=== PATIENT | female | born 1960 | race Caucasian/White ===

== ENCOUNTER 2018-08-18 11:32 | Outpatient (CLI) | payer BC ==
--- NOTE | 2018-08-18 13:34 | RAD ---
FRONTAL AND LATERAL IMAGING OF THE CHEST: Date: 08-18-18 Comparison: None. History: Chest pain and congestion. FINDINGS: There is no pneumothorax, pleural fluid, focal consolidation or alveolar edema. Heart and mediastinal contours appear grossly unremarkable. There is prominent degenerative changes at the first costochondral junction bilaterally, right greate r than left. There is multilevel degenerative change within the midthoracic spine. At the level of the first costochondral junction, increased density is seen which is likely all osseo us in nature. It is difficult to exclude an underlying pulmonary mass. IMPRESSION: Increased density in the region of the first costochondral junction bilaterally, right greater than l eft, suggesting degenerative change. It is difficult to exclude an underlying pulmonary nodule in the right lung apex. Thus, a follow up radiograph in 4-6 weeks is advised with apical lordotic view. POS: OFF
== END 2018-08-18 11:33 | disposition home or self-care (01) ==
LOC: BICRAD 11:32
PROVIDERS: ATTEND Internal Medicine Rheumatology
DX: R07.9 Chest pain, unspecified (principal); R91.8 Other nonspecific abnormal finding of lung field
CPT/HCPCS: 71046

== ENCOUNTER 2018-09-27 09:38 | Outpatient (CLI) | payer BC ==
--- NOTE | 2018-09-27 12:00 | CT ---
CT PARANASAL SINUSES NONCONTRAST: Date: 09-27-18 History: 57-year-old female with J32.9 - chronic sinusitis, unspecified. Comparison: None available. FINDINGS: There is an old left orbital floor fracture involving the medial aspect of the left infraorbital renae l. The transverse dimension of the fracture defect is approximately 7 mm. There has been healing of t he inferiorly displaced floor of the fracture fragments, with union of bone. There is herniation of e xtraconal fat into this fracture defect, but no herniation of the inferior rectus muscle. No intraorb ital edema, gas, or hematoma. There is mild-moderate circumferential mucosal thickening of the left maxillary sinus. There is also a fluid level at the dependent portion of the left maxillary sinus. Overall there is approximately 20 % opacification of the left maxillary antrum lumen. The bilateral uncinate processes have been surgically resected, and there are very widely patient and clear communications between the maxillary sinuses and the bilateral middle meati. The ethmoid septa are intact. There is a tiny polypoid density a few millimeters in size, which may represent mucosal thickening or a tiny polyp, at the left anterior inferior aspect of the nasal septum, abutting the in ferior turbinate. Otherwise, the nasal cavity is clear. No significant nasal septal deviation. Right maxillary sinus, all of the right ethmoid air cells, right frontal sinus, and left sphenoid air cell, are clear. Left sphenoethmoidal recess is patent and clear. Right sphenoid recess may be narrowed. M inimal mucosal thickening at right sphenoid air cell. There is mucosal thickening at the left fronta l recess also involving left anterior ethmoid air cells, without occlusion of the frontal recess. The rest of the left ethmoid air cells and the rest of the left frontal sinus are clear. IMPRESSION: 1. Status post FESS (functional endoscopic sinus surgery) consisting of bilateral uncinectomies, with widely patent and clear communication between the bilateral maxillary sinuses and the middle meati. 2. Old left orbital floor fracture. 3. Combination of mild mucosal thickening and fluid in the left maxillary sinus. 4. Mucosal thickening at left frontal recess and adjacent left anterior ethmoid air cells, without oc clusion. 5. The rest of the paranasal sinuses are essentially clear. POS: TPC
--- NOTE | 2018-09-27 12:13 | CT ---
CT THORAX WITH CONTRAST: DATE: 09-27-18 HISTORY: 57-year-old female with abnormal chest radiograph, chest pain, chest congestion. TECHNIQUE: 70 ml of Isovue 370 FINDINGS: There are severe degenerative changes at the bilateral first costosternal junctions, with greater scl erosis and bony hypertrophy on the right than the left. This accounts for the appearance of biapical pulmonary nodules on the recent chest radiograph of 08-18-18. There are no actual pulmonary nodules. There is no ground glass opacity, bronchiectasis, consolidation, pulmonary edema, or bullae. There ar e mild plate-like densities at the right middle lobe and lingula, consistent with subsegmental atelec tasis. Otherwise, the lungs are clear. The thoracic aorta is normal in caliber with no aneurysm, diss ection, or calcified atherosclerotic plaque. No cardiomegaly, mediastinal lymphadenopathy or hilar ly mphadenopathy. No pleural effusion or pneumothorax. Trachea and major bronchi are patent and clear. IMPRESSION: 1. No active disease. 2. No pulmonary nodules. 3. Osteoarthrosis of the bilateral first costosternal joints, accounting for the appearance of nodule s on previous chest radiograph. ROMEL Garcia POS: TPC
[2018-09-27] MEDS ORDERED: ISOVUE-370 76%-LOCM 1 ML ONE (13:18)
== END 2018-09-27 09:39 | disposition home or self-care (01) ==
LOC: BICCT 09:38
PROVIDERS: ATTEND Family Medicine
DX: R91.8 Other nonspecific abnormal finding of lung field (principal); M19.90 Unspecified osteoarthritis, unspecified site; J34.89 Other specified disorders of nose and nasal sinuses; Z98.890 Other specified postprocedural states
CPT/HCPCS: 71260; Q9966

== ENCOUNTER 2018-09-30 13:58 | Outpatient (CLI) | payer BC ==
--- NOTE | 2018-09-30 15:26 | BD ---
DEXA BONE MINERAL DENSITOMETRY STUDY: DATE: 09/30/2018. HISTORY: Postmenopausal. FINDINGS: Lumbar Spine: BMD (g/cm2) L1 1.046 T-Score: 0.5 Z-Score: 1.6 L2 0.998 T-Score: -0.3 Z-Score: 1.0 L3 1.101 T-Score: 0.2 Z-Score: 1.4 L4 1.127 T-Score: 0.6 Z-Score: 1.9 L1-L4 1.071 T-Score: 0.2 Z-Score: 1.5 Femoral Neck: 1.001 T-Score: 1.4 Z-Score: 2.6 Total Femur: 1.256 T-Score: 2.6 Z-Score: 3.4 Impression: Normal bone mineralization of the lumbar spine and left femoral neck. POS: RICH
== END 2018-09-30 13:59 | disposition home or self-care (01) ==
LOC: BICMAMMO 13:58
PROVIDERS: ATTEND Family Medicine
DX: Z13.820 Encounter for screening for osteoporosis (principal)
CPT/HCPCS: 77080

== ENCOUNTER 2019-04-13 12:36 | Outpatient (CLI) | payer BC ==
[2019-04-13 14:27] LABS: #Eosinphils 0.3 thou/uL (0.0-0.7); #Lymphocytes 3.7 thou/uL (1.20-3.40); #Monocytes 0.3 thou/uL (0.11-0.59); #Neutrophils 3.4 thou/uL (1.40-6.50); %Basophils 0.4 % (0.0-1.0); %Eosinophils 3.5 % (0.0-10.0); %Lymphocytes 47.7 % (21.0-51.0); %Monocytes 4.1 % (0.0-10.0); %Neutrophils 44.4 % (42.0-75.0); Hemoglobin 13.9 g/dL (12.0-16.0); Mean Corpuscular HGB CONC 32.6 g/dL (32.0-36.0); Mean Corpuscular Volume 91.8 fL (78.0-98.0); Platelet Count 220 thou/uL (130-400); RBC Distribution Width 12.2 % (11.5-14.5); Red Blood Cell (RBC) Count 4.64 mill/uL (4.20-5.40); White Blood Cell (WBC) Count 7.7 thou/uL (4.8-10.8)
[2019-04-13 14:33] LABS: INR-International Normal Ratio 0.9; Prothrombin Time 12.6 SEC (12.0-14.7)
[2019-04-13 14:35] LABS: Bilirubin Negative (Negative); Blood, Urine Negative (Negative); Clarity Clear (Clear); Glucose, Urine (Dipstick) 500 mg/dL (Negative); Leukocyte Negative Leu/uL (Negative); Nitrite Negative (Negative); Protein, Urine (Dipstick) Negative (Neg-Trace); RBC/HPF 0-3 HPF (0-3); Squamous Epithelial 0-3 HPF (0-3); Urobilinogen Normal mg/dL (Less than 2); WBC/HPF 0-3 HPF (0-3)
[2019-04-13 14:39] LABS: Bacteria/HPF 1+ HPF (None Seen)
[2019-04-13 14:50] LABS: Anion Gap 13 mmol/L (10-20); BUN (Urea Nitrogen) 12 mg/dL (9.8-20.1); Calc. Creatinine Clearance 0 mL/min (70-130); Calcium 10.2 mg/dL (7.8-10.44); Carbon Dioxide 26 mmol/L (22-29); Chloride 103 mmol/L (98-107); Estimated GFR-MDRD 74; Glucose 94 mg/dL (70-105); Potassium 4.3 mmol/L (3.5-5.1); Sodium 138 mmol/L (136-145)
== END 2019-04-13 12:37 | disposition home or self-care (01) ==
LOC: LABBT 12:36
PROVIDERS: ATTEND Orthopaedic Surgery
DX: Z01.812 Encounter for preprocedural laboratory examination (principal); M17.11 Unilateral primary osteoarthritis, right knee
CPT/HCPCS: 80048; 81001; 85025; 85610; 87081; 87086

== ENCOUNTER 2019-04-13 13:30 | Inpatient (IN) | payer BC ==
--- NOTE | 2019-04-13 09:16 | HP ---
HISTORY OF PRESENT ILLNESS: The patient is a 58-year-old female with long history of problems with both knees, the left greater than right. At age 17, she underwent surgery for recurrent patellar dislocations. Surgery was initially successful, but over the years, she has had progressive problems with walking, weightbearing, especially going up and down stairs. She has had persistent symptoms despite rest, restriction of activities, oral medications, and previous injections. The pain is now interfering with day-to-day activities including walking, getting dressed, and sleeping. PAST MEDICAL HISTORY: The patient is otherwise in good health. She has a history of fibromyalgia, diabetes, and thyroid replacement. CURRENT MEDICATIONS: Include; 1. Effexor. 2. Buspirone. 3. Diazepam. 4. Metformin. 5. Thyroid. 6. Fluticasone nasal spray. 7. Zyrtec. 8. Naproxen. 9. Estrogens. 10. Omeprazole. 11. Multivitamins. 12. MiraLAX. 13. Pristiq. 14. Glucosamine. ALLERGIES: SHE IS ALLERGIC TO ERYTHROMYCIN. FAMILY HISTORY: Otherwise, unremarkable. SOCIAL HISTORY: Otherwise, unremarkable. REVIEW OF SYSTEMS: Otherwise, unremarkable. PHYSICAL EXAMINATION: GENERAL: Reveals a healthy female. HEENT: Unremarkable. NECK: Supple. CHEST: Clear. HEART: Regular rate and rhythm. ABDOMEN: Soft, nontender. PELVIS, RECTAL, AND BREAST: Deferred. EXTREMITIES: Pertinent findings are related to the left knee. There is slight puffiness. No definite effusion. There is normal alignment. There is medial and lateral joint line tenderness. There is crepitus with range of motion. There is a healed medial incision. There is no instability. Range of motion is 0 to 135 degrees. Pulses are 1+. Neurovascular exam is intact. There is no pain with range of motion of the left hip. IMAGING STUDIES: X-rays of both knees reveal tricompartmental degenerative arthritis and [id number] in the patellofemoral joints bilaterally, left side greater than right. IMPRESSION: 1. Degenerative arthritis, both knees, left symptomatic more than right. 2. History of diabetes. 3. History of thyroid replacement. 4. History of fibromyalgia. PLAN: Left total knee replacement. The nature of the surgery, length of recovery, and potential complications such as infection, loss of motion, incomplete relief, delayed wound healing, neurovascular injury, thromboembolic phenomena, possible transfusion, and need for revision have been discussed in detail. Job ID: [id number]
[2019-04-13 12:46] VITALS: BMI 25.9
[2019-04-17] MEDS ORDERED: ceFAZolin Sodium (SDC) 2 GM/100 ML BAG ONE (06:26)
[2019-04-17] MEDS ORDERED: Tranexamic Acid 1,000 MG/10 ML VIAL ONE ×2 (06:26→08:58)
[2019-04-17] MEDS ORDERED: Sodium Chloride 0.9% 100 ML ONE (06:26)
[2019-04-17] MEDS ORDERED: Midazolam HCl 2 mg/2 ml Vial ONE (06:33)
[2019-04-17] MEDS ORDERED: Fentanyl 100 MCG/2 ML VIAL ONE ×3 (06:33→09:29)
[2019-04-17] MEDS ORDERED: Promethazine HCl 25 MG/ML VIAL ONE (07:00)
[2019-04-17] MEDS ORDERED: Scopolamine 1.5 mg/72 hour Patch ONE (07:03)
[2019-04-17] MEDS ORDERED: Fentanyl 100 MCG/2 ML VIAL IV PRN (07:37)
[2019-04-17] MEDS ORDERED: Ropivacaine HCl/PF 250 ML in Premix Bag 1 BAG NERVE BLCK SCH (07:37)
[2019-04-17] MEDS ORDERED: Ondansetron PF 4 MG/2 ML Vial IVP PRN ×2 (07:37→11:00)
[2019-04-17] MEDS ORDERED: Zolpidem Tartrate 5 MG TAB PO PRN ×2 (07:37→11:00)
[2019-04-17] MEDS ORDERED: Promethazine HCl 25 MG/ML VIAL IM PRN ×2 (07:37→08:54)
[2019-04-17] MEDS ORDERED: traMADol HCl 50 MG TAB PO PRN ×3 (07:37→11:00)
[2019-04-17] MEDS ORDERED: HYDROcodone/Acetaminophen 10/325 mg Tablet PO PRN ×3 (07:37→11:00)
[2019-04-17] MEDS ORDERED: Bupivacaine/Epinephrine 0.25% 30 ML VIAL ONE (07:40)
[2019-04-17] MEDS ORDERED: Promethazine HCl 25 MG/ML VIAL SLOW IVP PRN ×2 (08:54→11:00)
[2019-04-17] MEDS ORDERED: HYDROmorphone 2 MG/ML VIAL SLOW IVP PRN (08:54)
[2019-04-17] MEDS ORDERED: Ondansetron HCl/PF 4 MG/2 ML Vial IVP PRN (08:54)
[2019-04-17] MEDS ORDERED: PACU-Morphine 4MG/ML VIAL SLOW IVP PRN (08:54)
[2019-04-17] MEDS ORDERED: Tranexamic Acid 1,000 MG in Sodium Chloride 0.9% 100 ML IVPB SCH ×2 (09:00→11:00)
--- NOTE | 2019-04-17 10:32 | RAD ---
LEFT KNEE 2 VIEWS: HISTORY: Total knee postop. FINDINGS/IMPRESSION: There are recent postop changes of total knee arthroplasty in good position and alignment. Soft tiss ue air is present. POS: TPC
[2019-04-17] MEDS ORDERED: Non-Formulary Item 1 EACH (Dulaglutide [Trulicity] 1.5 MG) SC SCH (11:00)
[2019-04-17] MEDS ORDERED: DULoxetine 30 MG CAP PO SCH ×4 (11:00→21:00)
[2019-04-17] MEDS ORDERED: Multivitamin W/ Minerals 1 TAB PO SCH ×2 (11:00→11:30)
[2019-04-17] MEDS ORDERED: Vancomycin HCl 1 GM in Premix Bag 1 BAG IVPB SCH ×2 (11:00→19:00)
[2019-04-17] MEDS ORDERED: Fentanyl 100 MCG/2 ML VIAL SLOW IVP PRN ×2 (11:00)
[2019-04-17] MEDS ORDERED: Acetaminophen 325 MG TAB PO PRN (11:00)
[2019-04-17] MEDS ORDERED: Citrucel 500 MG TAB PO PRN (11:00)
[2019-04-17] MEDS ORDERED: Aspirin 81 mg Enteric Coated Tablet PO SCH ×2 (11:00→11:30)
[2019-04-17] MEDS ORDERED: Non-Formulary Item 1 EACH (Dapagliflozin Propanediol [Farxiga] 1 TAB) PO SCH (11:00)
[2019-04-17] MEDS ORDERED: diphenhydrAMINE 25 MG CAP PO PRN (11:00)
--- NOTE | 2019-04-17 11:14 | OP ---
DATE OF PROCEDURE: 04/17/2019 GLASS INSPECTOR: Tanya Herron PA-C ANESTHESIA: General plus adductor canal and sciatic nerve blocks. PREOPERATIVE DIAGNOSIS: Post-traumatic degenerative arthritis, left knee. POSTOPERATIVE DIAGNOSIS: Post-traumatic degenerative arthritis, left knee. PROCEDURE PERFORMED: Left total knee replacement with computer-assisted navigation with cemented [place] [employer] components (#3 femoral component, #3 primary tibial baseplate with a 9 mm CS plastic insert, and A29 all-plastic patellar component). DESCRIPTION OF PROCEDURE: After satisfactory anesthesia was induced in supine position, sequential compression device was placed on the nonoperative leg throughout the procedure. The left leg was then prepped and draped in routine sterile fashion. The leg was elevated and exsanguinated with an Esmarch bandage and the tourniquet inflated to 250 mmHg. The previous medial parapatellar incision was reopened in line with the previous incision and carried slightly proximally. This was carried down through subcutaneous tissues. Bleeding points were controlled with Bovie cautery. A full-thickness medial flap was developed and retracted laterally. The medial parapatellar arthrotomy was performed. The patella was dislocated laterally and portions of the fat pad were excised for exposure. There was marked degenerative arthritis of the knee especially in the patellofemoral joint with large areas of exposed bone. Meniscal remnants and osteophytes were removed. Using the [employer] pinless navigation system and the appropriate guides, the distal femoral and proximal tibial articular surfaces were excised with an oscillating saw to accept the trial components. It was felt that #3 femoral component and #3 tibial baseplate with 9 mm CS plastic insert gave appropriate size, fit, and stability. The patellar articular surface was excised to accept an all-plastic A29 patellar component. There was good range of motion and good patellar tracking. The trial components were removed. The knee was copiously irrigated with pulsatile lavage and the bony surfaces were thoroughly cleaned and dried. The permanent components were then cemented in a single stage using one package of cement premixed with 1 g of tobramycin powder. Excess cement was removed. There was again good fit and stability of the components. The knee was again copiously irrigated with pulsatile lavage. The medial retinaculum and quadriceps mechanism was closed with interrupted #2 Vicryl and running #2 Quill. The skin was infiltrated with 30 mL of 0.25% Marcaine with epinephrine. Subcutaneous tissues were closed with running 0 Quill suture and the skin closed with running subcuticular 3-0 Monoderm and SurgiSeal skin adhesive. A sterile bulky compressive dressing was applied. The tourniquet deflated after 63 minutes. The foot promptly pinked up. A sequential compression device was applied to the left leg. She was awakened and taken to recovery room in stable condition. There were no apparent intraoperative complications. The estimated blood loss was less than 100 mL. Job ID: [id number]
[2019-04-17] MEDS: Sodium Chloride 0.9% 1,000 ML IV SCH ×2 (11:40→21:07)
[2019-04-17] MEDS ORDERED: Dextrose 5% in Water 1,000 ML IV PRN (11:48)
[2019-04-17] MEDS ORDERED: Dextrose 50% Abboject 50 ML SYRINGE SLOW IVP PRN (11:48)
[2019-04-17] MEDS ORDERED: HumaLOG 300 UNITS/3 ML VIAL SC PRN ×2 (11:48)
[2019-04-17] MEDS ORDERED: Ketorolac Tromethamine 30 MG/ML VIAL IVP SCH ×2 (12:00)
[2019-04-17 13:20] LABS: ALT (SGPT) 7 U/L (8-55); AST (SGOT) 16 U/L (5-34); Albumin 3.8 g/dL (3.5-5.0); Alkaline Phosphatase 70 U/L (40-150); Anion Gap 9 mmol/L (10-20); BUN (Urea Nitrogen) 14 mg/dL (9.8-20.1); Bilirubin, Total 0.2 mg/dL (0.2-1.2); Calc. Creatinine Clearance 82 mL/min (70-130); Carbon Dioxide 27 mmol/L (22-29); Chloride 106 mmol/L (98-107); Estimated GFR-MDRD 73; Globulin 2.4 g/dL (2.4-3.5); Glucose 105 mg/dL (70-105); Potassium 3.7 mmol/L (3.5-5.1); Protein, Total 6.2 g/dL (6.0-8.3); Sodium 138 mmol/L (136-145)
[2019-04-17] MEDS: CEFAZOLIN 2 GM in Premix Bag 1 BAG IVPB SCH ×2 (15:16→22:36)
[2019-04-17] MEDS: Ketorolac Tromethamine 30 MG/ML VIAL IVP SCH ×2 (15:17→21:09)
--- NOTE | 2019-04-17 15:25 | PDOC.HOSPP ---
- Subjective Encounter Date: 04/17/19 Encounter Time: 14:00 Subjective: left LE is still numb, no pain PT is here to ambulate her post op no chest pain or sob or palp - Objective Vital Signs & Weight: Vital Signs (12 hours) Pulse Ox 04/17/19 12:00 95 Weight Weight 151 lb Result Diagrams: 04/17/19 12:43 Additional Labs: Accuchecks 04/17/19 06:41 POC Glucose 104 ROS - Medication Medications: Active Medications Generic Name Dose Route Start Last Admin Trade Name Freq PRN Reason Stop Dose Admin Fentanyl 50 mcg 04/17/19 07:37 04/17/19 11:31 Sublimaze IV 50 mcg Q1H PRN Administration BREAKTHROUGH PAIN Cefazolin Sodium/Dextrose 2 gm 50 mls @ 100 mls/hr 04/17/19 14:00 04/17/19 15 :16 / Device IVPB 04/17/19 22:29 50 mls Q8HR CATE Administration Sodium Chloride 1,000 mls @ 100 mls/hr 04/17/19 11:00 04/17/19 11:40 Normal Saline 0.9% IV Not Given .Q10H CTAE Ketorolac Tromethamine 30 mg 04/17/19 15:00 04/17/19 15:17 Toradol IVP 04/22/19 12:01 30 mg 0300,0900,1500,2100 CATE Administration - Exam NAD, awake alert Eye: PERRL, anicteric sclera ENT: normocephalic atraumatic, no oropharyngeal lesions, moist mucosa Neck: supple, no JVD Heart: RRR, no murmur Respiratory: no wheezes, no rales Gastrointestinal: soft, non-tender, normal bowel sounds Extremities: no cyanosis, no clubbing Extremeties - other findings: left knee in dressing Neurological: CN's grossly intact, no focal deficits Psychiatric: normal affect, A&O x 3 Hosp A/P (1) Status post total knee replacement, left Code(s): Z96.652 - PRESENCE OF LEFT ARTIFICIAL KNEE JOINT Status: Acute (2) DM type 2 (diabetes mellitus, type 2) Status: Chronic Qualifiers: Diabetes mellitus long-term insulin use: without middle or intermediate school principal use (3) Hypothyroidism Code(s): E03.9 - HYPOTHYROIDISM, UNSPECIFIED Status: Chronic Qualifiers: Hypothyroidism type: unspecified Qualified Code(s): E03.9 - Hypothyroidism , unspecified (4) Depression Code(s): F32.9 - MAJOR DEPRESSIVE DISORDER, SINGLE EPISODE, UNSPECIFIED Status : Chronic Qualifiers: Active/Remission status: in full remission (5) GERD (gastroesophageal reflux disease) Code(s): K21.9 - GASTRO-ESOPHAGEAL REFLUX DISEASE WITHOUT ESOPHAGITIS Status: Chronic Qualifiers: Esophagitis presence: without esophagitis Qualified Code(s): K21.9 - Gastro -esophageal reflux disease without esophagitis - Plan post op hemostable continue asp bid, cymbalta, dapaglizosin and buspirone on fentanyl, ropivacaine nr block, ultram prn along iv fluids cmp is normal will f/u
[2019-04-17] MEDS: HYDROcodone/Acetaminophen 10/325 mg Tablet PO PRN (18:51)
[2019-04-17] MEDS: Mupirocin 2% Ointment (Nasal) 1 GM TUBE EA NARE SCH (20:48)
[2019-04-17] MEDS: busPIRone HCl 10 MG TAB PO SCH (20:49)
[2019-04-17] MEDS: Cyclobenzaprine 10 MG TAB PO SCH (20:50)
[2019-04-17] MEDS: Aspirin 81 mg Enteric Coated Tablet PO SCH (20:50)
[2019-04-17] MEDS: Senokot S 8.6-50 MG TAB PO SCH (20:55)
[2019-04-17] MEDS ORDERED: CYCLOBENZAPRINE HCL PO SCH (21:00)
[2019-04-17] MEDS ORDERED: Non-Formulary Item 1 EACH (Buspirone Hcl [Buspirone Hcl] 30 MG) PO SCH (21:00)
[2019-04-17] MEDS ORDERED: AZELASTINE EA NARE SCH (21:00)
[2019-04-17] MEDS ORDERED: FLUTICASONE EA NARE SCH (21:00)
[2019-04-18] MEDS: Ketorolac Tromethamine 30 MG/ML VIAL IVP SCH ×4 (03:56→20:35)
[2019-04-18] MEDS: HYDROcodone/Acetaminophen 10/325 mg Tablet PO PRN ×4 (03:58→18:47)
[2019-04-18 05:02] LABS: Hemoglobin 11.8 g/dL (12.0-16.0); Mean Corpuscular HGB CONC 33.7 g/dL (32.0-36.0); Mean Corpuscular Volume 91.9 fL (78.0-98.0); Mean Platelet Volume 7.8 fL (7.4-10.4); Platelet Count 177 thou/uL (130-400); RBC Distribution Width 12.1 % (11.5-14.5); Red Blood Cell (RBC) Count 3.82 mill/uL (4.20-5.40); White Blood Cell (WBC) Count 8.8 thou/uL (4.8-10.8)
[2019-04-18] MEDS ORDERED: Vancomycin HCl 1 GM in Premix Bag 1 BAG IVPB SCH (07:00)
[2019-04-18] MEDS: Sodium Chloride 0.9% 1,000 ML IV SCH ×2 (08:16→17:07)
[2019-04-18] MEDS ORDERED: Dulaglutide [Trulicity] 1.5 MG SC SCH (09:00)
[2019-04-18] MEDS: Aspirin 81 mg Enteric Coated Tablet PO SCH ×2 (09:15→20:41)
[2019-04-18] MEDS: Senokot S 8.6-50 MG TAB PO SCH ×2 (09:15→20:44)
[2019-04-18] MEDS: Multivitamin W/ Minerals 1 TAB PO SCH (09:16)
[2019-04-18] MEDS: DULoxetine 30 MG CAP PO SCH (09:16)
[2019-04-18] MEDS: Mupirocin 2% Ointment 22 GM Tube TOP SCH ×2 (11:25→21:08)
[2019-04-18] MEDS: Mupirocin 2% Ointment (Nasal) 1 GM TUBE EA NARE SCH (12:18)
--- NOTE | 2019-04-18 14:24 | PRG ---
DATE OF SERVICE: 04/18/2019 SUBJECTIVE: Elizabeth is a 58-year-old female, postop day 1, from left total knee arthroplasty. She is doing very well. Her pain is controlled. She has no complaints. OBJECTIVE: VITAL SIGNS: Temperature is 97.3, pulse is 109, respiratory rate is 18 and nonlabored, and blood pressure is 100/68. GENERAL: She is alert and oriented to person, place, time, and situation. Responsive and appropriate and conversant with the examiner. LABORATORY DATA: Hemoglobin and hematocrit 11.8 and 35.1. IMPRESSION: A 58-year-old female, postoperative day 1, left total knee arthroplasty, doing well. PLAN: Continue current care. Discharge home tomorrow unless the patient elects to go home later today. Job ID: [id number]
--- NOTE | 2019-04-18 14:56 | PDOC.HOSPP ---
- Subjective Encounter Date: 04/18/19 Encounter Time: 14:54 Subjective: no chest pain, sob, nausea, etc - Objective Vital Signs & Weight: Vital Signs (12 hours) Temp Pulse Resp BP Pulse Ox 04/18/19 11:06 97.3 F L 109 H 18 100/68 94 L 04/18/19 07:57 95 04/18/19 07:23 98.2 F 114 H 18 89/61 L 93 L 04/18/19 04:00 100.9 F H 120 H 22 H 116/66 95 Weight Admit Weight 151 lb Weight 151 lb I&O: 04/17/19 04/18/19 04/19/19 06:59 06:59 06:59 Intake Total 4515 Output Total 6723 1000 Balance -2210 -1000 Result Diagrams: 04/18/19 04:50 04/17/19 12:43 Additional Labs: Accuchecks 04/18/19 04/18/19 04/17/19 10:27 05:27 20:47 POC Glucose 135 H 139 H 107 04/17/19 15:39 POC Glucose 100 ROS - Medication Medications: Active Medications Generic Name Dose Route Start Last Admin Trade Name Freq PRN Reason Stop Dose Admin Hydrocodone Bitart/Acetaminophen 2 tab 04/17/19 07:37 04/18/19 14:45 [place] 10/325 PO 2 tab Q4H PRN Administration PAIN (4-6) Aspirin 81 mg 04/17/19 21:00 04/18/19 09:15 Ecotrin PO 81 mg BID CATE Administration Buspirone HCl 30 mg 04/17/19 21:00 04/17/19 20:49 Buspar PO 30 mg HS CATE Administration Cyclobenzaprine HCl 20 mg 04/17/19 21:00 04/17/19 20:50 Flexeril PO 20 mg HS CATE Administration Duloxetine HCl 60 mg 04/18/19 09:00 04/18/19 09:16 Cymbalta PO 60 mg DAILY CATE Administration Fentanyl 50 mcg 04/17/19 07:37 04/17/19 11:31 Sublimaze IV 50 mcg Q1H PRN Administration BREAKTHROUGH PAIN Ropivacaine 250 ml/ Device 250 mls @ 0 mls/hr 04/17/19 07:37 04/18/19 11:16 NERVE BLCK 250 mls INF CATE Administration As Directed Sodium Chloride 1,000 mls @ 100 mls/hr 04/17/19 11:00 04/18/19 08:16 Normal Saline 0.9% IV Not Given .Q10H CATE Iron/Minerals/Multivitamins 1 tab 04/18/19 09:00 04/18/19 09:16 Theragran M PO 1 tab DAILY CATE Administration Ketorolac Tromethamine 30 mg 04/17/19 15:00 04/18/19 14:43 Toradol IVP 04/22/19 12:01 30 mg 0300,0900,1500,2100 CATE Administration Mupirocin 0 gm 04/18/19 21:00 04/18/19 11:25 Bactroban 2% Ointment TOP 1 applic BID CATE Administration Senna/Docusate Sodium 2 tab 04/17/19 21:00 04/18/19 09:15 Senokot S PO 2 tab BID CATE Administration Sodium Chloride 10 ml 04/17/19 11:00 04/18/19 14:47 Flush - Normal Saline IVF 10 ml PRN PRN Administration Saline Flush Tramadol HCl 50 mg 04/17/19 07:37 04/18/19 07:03 Ultram PO 50 mg Q6H PRN Administration Mild Pain (1-3) Tramadol HCl 100 mg 04/17/19 07:37 04/18/19 13:36 Ultram PO 100 mg Q6H PRN Administration Moderate Pain 4-6 Zolpidem Tartrate 5 mg 04/17/19 11:00 04/17/19 21:17 Ambien PO 5 mg HSPRN PRN Administration Insomnia - Exam awake alert Neck: no JVD Heart: RRR, no murmur Respiratory: CTAB Gastrointestinal: soft, non-tender, normal bowel sounds Extremities: no edema Hosp A/P (1) DM type 2 (diabetes mellitus, type 2) Status: Chronic Qualifiers: Diabetes mellitus assistant terminal manager insulin use: without long-term use Diabetes mellitus complication status: without complication Qualified Code(s): E11.9 - Type 2 diabetes mellitus without complications (2) Depression Code(s): F32.9 - MAJOR DEPRESSIVE DISORDER, SINGLE EPISODE, UNSPECIFIED Status : Chronic Qualifiers: Active/Remission status: in full remission (3) GERD (gastroesophageal reflux disease) Code(s): K21.9 - GASTRO-ESOPHAGEAL REFLUX DISEASE WITHOUT ESOPHAGITIS Status: Chronic Qualifiers: Esophagitis presence: without esophagitis Qualified Code(s): K21.9 - Gastro -esophageal reflux disease without esophagitis (4) Hypothyroidism Code(s): E03.9 - HYPOTHYROIDISM, UNSPECIFIED Status: Chronic Qualifiers: Hypothyroidism type: unspecified Qualified Code(s): E03.9 - Hypothyroidism , unspecified - Plan doing well post o0p cont home med PT/OT
[2019-04-18] MEDS ORDERED: DULoxetine 30 MG CAP PO SCH (17:00)
[2019-04-18] MEDS: busPIRone HCl 10 MG TAB PO SCH (20:41)
[2019-04-18] MEDS: Cyclobenzaprine 10 MG TAB PO SCH (20:42)
[2019-04-19] MEDS: Ketorolac Tromethamine 30 MG/ML VIAL IVP SCH ×2 (04:03→08:32)
[2019-04-19] MEDS: HYDROcodone/Acetaminophen 10/325 mg Tablet PO PRN ×3 (04:04→13:09)
[2019-04-19] MEDS: Sodium Chloride 0.9% 1,000 ML IV SCH ×2 (04:13→14:46)
[2019-04-19] MEDS: Aspirin 81 mg Enteric Coated Tablet PO SCH (08:32)
[2019-04-19] MEDS: DULoxetine 30 MG CAP PO SCH (08:32)
[2019-04-19] MEDS: Senokot S 8.6-50 MG TAB PO SCH (08:33)
[2019-04-19] MEDS: Multivitamin W/ Minerals 1 TAB PO SCH (08:33)
[2019-04-19 11:42] VITALS: BP 99/66; TEMP 97.8
[2019-04-19] MEDS: Mupirocin 2% Ointment 22 GM Tube TOP SCH (13:11)
[2019-04-19] MEDS: DAPAGLIFLOZIN PROPANEDIOL PO SCH (13:46)
[2019-04-19] MEDS: DYMISTA EA NARE SCH (13:46)
--- NOTE | 2019-04-19 15:32 | DIS ---
DATE OF ADMISSION: 04/17/2019 DATE OF DISCHARGE: 04/19/2019 DISPOSITION: The patient discharged home. FINAL DIAGNOSES: Status post left total knee replacement, hypothyroidism, diabetes mellitus, type 2; gastroesophageal reflux disease and depression. DISCHARGE MEDICATIONS: 1. Naltrexone 0.4 mg daily. 2. Estradiol vaginal cream p.r.n. 3. Protonix 40 mg a day. 4. Trazodone 150 mg at bedtime. 5. Buspar 30 mg at bedtime. 6. Eszopiclone 3 mg tablet before meals and at bedtime. 7. Duloxetine 60 mg in the morning, 30 mg at night. 8. Celebrex 200 b.i.d. 9. Trulicity 1.5 mg subcu as directed. 10. Farxiga. 11. Aspirin 81 mg a day. ALLERGIES: ERYTHROMYCIN. PENDING AT TIME OF DISCHARGE: Nothing. CODE STATUS: Full. HOSPITAL COURSE: The patient was placed in the hospital on 04/17/2019, underwent left total knee replacement. [facility] was consulted for medical management. The patient did well during her hospital stay. She was discharged home today by Dr. Zane So, to be seen in followup on 05/02/2019 at 1:30 p.m., outpatient physical therapy on 04/24/2019 at 10 a.m. Job ID: [id number] [email or web address]
== END 2019-04-19 13:27 | disposition home or self-care (01) | DRG 470 ==
LOC: SJJU 04-17 05:37
PROVIDERS: ADMIT Orthopaedic Surgery; ATTEND Orthopaedic Surgery
PROC: 0SRD0J9 Replacement of Left Knee Joint with Synthetic Substitute, Cemented, Open Approach (ICD-10-PCS; principal; 2019-04-17)
DX: M17.0 Bilateral primary osteoarthritis of knee (principal); M79.7 Fibromyalgia; E11.9 Type 2 diabetes mellitus without complications; E03.9 Hypothyroidism, unspecified; F32.9 Major depressive disorder, single episode, unspecified; K21.9 Gastro-esophageal reflux disease without esophagitis; Z79.899 Other long term (current) drug therapy; Z79.51 Long term (current) use of inhaled steroids; Z88.1 Allergy status to other antibiotic agents; Z79.1 Long term (current) use of non-steroidal anti-inflammatories (NSAID)
CPT/HCPCS: 36415; 36416; 80053; 85027; C1713; C1776; J0690; J1885; J2250; J2550; J2795; J3010; J3370; J3490

== ENCOUNTER 2020-12-20 07:27 | Outpatient (CLI) | payer BC | END 2020-12-20 07:28 | disposition home or self-care (01) | LOC: NM 07:27 | PROVIDERS: ATTEND Internal Medicine Gastroenterology | DX: K30 Functional dyspepsia (principal); Z79.4 Long term (current) use of insulin | CPT/HCPCS: 78264; A9541 ==

== ENCOUNTER 2025-04-12 09:21 | Outpatient (CLI) | payer BC | END 2025-04-12 09:22 | disposition home or self-care (01) | LOC: SCSRAD 09:21 | PROVIDERS: ATTEND Orthopaedic Surgery | DX: M54.50 Low back pain, unspecified (principal); M47.816 Spondylosis without myelopathy or radiculopathy, lumbar region; Z98.1 Arthrodesis status | CPT/HCPCS: 72100 ==

== ENCOUNTER 2025-05-30 15:20 | Outpatient (CLI) | payer BC | END 2025-05-30 15:21 | disposition home or self-care (01) | LOC: SCSRAD 15:20 | PROVIDERS: ATTEND Orthopaedic Surgery | DX: M54.50 Low back pain, unspecified (principal); M47.816 Spondylosis without myelopathy or radiculopathy, lumbar region; Z98.1 Arthrodesis status | CPT/HCPCS: 72100 ==